=== PATIENT | male | born 1950 | race Hispanic/Latino ===

== ENCOUNTER 2017-06-30 07:56 | Day surgery (SDC) | payer MEDICARE ==
[2017-06-30] MEDS ORDERED: Lactated Ringer's 1,000 ML IV ONE (08:09)
[2017-06-30] MEDS ORDERED: Lidocaine 2% MPF (5 ml) Inj ONE (11:12)
[2017-06-30] MEDS ORDERED: Propofol 10 mg/ml Inj (20 ML) ONE (11:12)
[2017-06-30 11:54] VITALS: BP 114/56; PULSE 63; RESP 13; TEMP 98.1; O2SAT 100
== END 2017-06-30 11:55 | disposition home or self-care (01) ==
LOC: H.ENDO 07:56
PROVIDERS: ATTEND Internal Medicine Gastroenterology
DX: Z12.11 Encounter for screening for malignant neoplasm of colon (principal); E78.5 Hyperlipidemia, unspecified; I10 Essential (primary) hypertension; K64.8 Other hemorrhoids; K57.30 Diverticulosis of large intestine without perforation or abscess without bleeding
CPT/HCPCS: G0121; J2704; J7120